=== PATIENT | male | born 2005 | race Caucasian/White ===

== ENCOUNTER 2023-01-06 21:55 | Emergency (ER) | payer OTHER, SELFPAY ==
[2023-01-06 22:10] VITALS: BP 127/77; PULSE 62; RESP 16; TEMP 36.4; O2SAT 97; BMI 22.7
--- NOTE | 2023-01-06 22:13 | CRLHL7_ITS ---
For Patients: As a result of the Cures Act, medical imaging exams and procedure reports are released immediately into your electronic medical record. You may view this report before your referring provider. If you have questions, please contact your health care provider. INDICATION: Pain at metacarpophalangeal joint. TECHNIQUE: Left thumb 3 views. Permanently recorded images are archived. COMPARISON: None. FINDINGS: No acute fracture or aggressive osseous lesion. Alignment is normal. The joint spaces are preserved. Specifically, the 1st metacarpophalangeal joint is unremarkable. The soft tissues are unremarkable. IMPRESSION: No evidence of an acute bony abnormality. Unremarkable 1st metacarpophalangeal joint. Dictated by Roe Salcedo MD @ 01/06/2023 11:45:11 PM (Electronically Signed)
--- NOTE | 2023-01-06 22:18 | ED.UPPEXIN ---
HPI - Extremity Injury (Upper) General Time Seen by Provider: 22:18 Date Seen: 01/06/23 Chief Complaint: Extremity Pain/Injury, Upper Stated Complaint: thumb pain Time Seen by Provider: 01/06/23 22:17 Source: patient and RN notes reviewed Mode of arrival: ambulatory Limitations: no limitations History of Present Illness HPI narrative: This 17-year-old male is coming in with left thumb pain, injured his thumb while playing [employer] earlier today. This happened about 430. He did ice it. He was going to wait until tomorrow morning but a friend had to come in for a laceration, thought he would be evaluated. He points to the thumb metacarpophalangeal joint where he is feeling pain. He sounds like he had a significant jamming mechanism while playing [employer]. Nothing else was injured, the wrist does not hurt. It is only this joint at the base of his left thumb. MD complaint: injury to: left and finger Related Data Home Medications Medication Instructions Recorded Confirmed No Known Home Medications 01/06/23 01/06/23 Allergies Allergy/AdvReac Type Severity Reaction Status Date / Time No Known Drug Allergies Allergy Verified 01/06/23 22:10 Review of Systems Narrative: As per HPI. Exam Const: Vital Signs, click to edit/add: Vital Signs - 24 hr 01/06/23 22:10 Temperature 97.5 F L Pulse Rate [Right Pulse Oximeter] 62 Respiratory Rate 16 Blood Pressure [Ri ght Upper Arm] 127/77 Pulse Oximetry 97 Oxygen Delivery Me thod Room Air Is a very pleasant 17-year-old male seen exam room 1. He is alert, interactive, no apparent distress. On inspection of his left hand, see no significant bruising/ecchymosis, no erythema, no open wounds. He can mobilize his left thumb, fingers are all fully mobile with full flexion extension, he states it does not bother him at all. He can move the thumb about but does have pain along the metacarpophalangeal joint. He is definitely tender along this joint. Distally into the thumb over the phalanx over the IP joint or distal phalanx, there is no traumatic change or pain. Neurovascular is intact. Wrist is nontender. No snuffbox tenderness. Documenting provider has reviewed patient's vital signs: yes Course Reevaluation(s) Time of Reevaluation #1: 23:58 Reevaluation #1: Reviewed with patient that his x-rays negative for fracture. We discussed jam injury. Placed a 4 1/2 inch finger splint on with tape. Reviewed he could use this as needed for comfort. As he feels able can increase his activity. Vital Signs Vital signs: Initial Vital Signs Temperature 97.5 F L 01/06/23 22:10 Temperature Source Temporal Artery Scan 01/06/23 22:10 Pulse Rate 62 01/06/23 22:10 Pulse Rhythm Regular 01/06/23 22:10 Respiratory Rate 16 01/06/23 22:10 Blood Pressure 127/77 01/06/23 22:10 Blood Pressure Mean 93 01/06/23 22:10 Blood Pressure Position Sitting 01/06/23 22:10 Pulse Oximetry 97 01/06/23 22:10 Oxygen Delivery Method Room Air 01/06/23 22:10 Vital Signs Temperature 97.5 F L 01/06/23 22:10 Pulse Rate 62 01/06/23 22:10 Respiratory Rate 16 01/06/23 22:10 Blood Pressure 127/77 01/06/23 22:10 Pulse Oximetry 97 01/06/23 22:10 Oxygen Delivery Method Room Air 01/06/23 22:10 Temperature 97.5 F L 01/06/23 22:10 Pulse Rate 62 01/06/23 22:10 Respiratory Rate 16 01/06/23 22:10 Blood Pressure 127/77 01/06/23 22:10 Pulse Oximetry 97 01/06/23 22:10 Oxygen Delivery Method Room Air 01/06/23 22:10 MDM - Extremity Injury (Upper) Imaging Data XR left thumb: Attestation: I have reviewed the pertinent imaging results. My impression: I see no acute pathology on patient's x-ray of his thumb, wait radiology over-read. Radiologist's impression: Patient: [facility] Facility:?[facility] Patient ID:?[id number] Site Patient ID:?[id number]. Site :?[id number] Study:?XRay Extremity Left Thumb 3 views-01/06/2023 10:43:33 PM Ordering Physician:?Valentine Remy Final Report: INDICATION: Pain at metacarpophalangeal joint. TECHNIQUE: Left thumb 3 views. Permanently recorded images are archived. COMPARISON: None. FINDINGS: No acute fracture or aggressive osseous lesion. Alignment is normal. The joint spaces are preserved. Specifically, the 1st metacarpophalangeal joint is unremarkable. The soft tissues are unremarkable. IMPRESSION: No evidence of an acute bony abnormality. Unremarkable 1st metacarpophalangeal joint. Dictated by Roe Salcedo MD @ 01/06/2023 11:45:11 PM (Electronic Signature) Discharge Plan Discharge Clinical Impression: Thumb injury Patient Disposition: Home, Self-Care Condition: Stable Instructions: Jammed Finger (ED) Additional Instructions: Tylenol and ibuprofen per bottle directions as needed for discomfort. Continue to ice the thumb over the next few days to help decrease pain and inflammation. Use splint as needed over the next few weeks for comfort. If you are not able to wean out of the splint in the next few weeks, have increasing pain at any point, do recommend re-evaluation. There is no evidence of fracture on the x-ray. Activity Level: Activity as Tolerated Prescriptions: No Action No Known Home Medications Stand Alone Forms: [employer] Info Instructions
[2023-01-07] VITALS: BP 118/68; PULSE 70; RESP 16; TEMP 36.8; O2SAT 97
== END 2023-01-07 | disposition home or self-care (01) ==
PROVIDERS: Emergency Provider Family Medicine
DX: S69.92XA Unspecified injury of left wrist, hand and finger(s), initial encounter (principal)
CPT/HCPCS: 29130; 73140; 99282; 99283

== ENCOUNTER 2023-06-26 17:55 | Emergency (ER) | payer OTHER, SELFPAY ==
[2023-06-26 17:57] VITALS: BP 109/72; PULSE 91; RESP 16; TEMP 36.6; O2SAT 97; BMI 22.9
--- NOTE | 2023-06-26 18:30 | XR_ITS ---
Patient: KARSTEN MCCLELLAND Facility:?[facility] Patient ID:?[id number] Site Patient ID:?[id number]. Site :?[id number] Study:?XRay-Extremity Right ankle 3v-06/26/2023 6:42:08 PM Ordering Physician:Danette Self Final Report: INDICATION: Inversion injury. Lateral malleolus pain and swelling. COMPARISON: None. FINDINGS/IMPRESSION: Right ankle, three views. Moderate soft tissue swelling over the lateral malleolus. No fracture, dislocation, or other osseous abnormality identified. Dictated by Mundo Perdomo MD @ 06/26/2023 7:24:54 PM Dictated by: Mundo Perdomo MD @ 06/26/2023 19:25:21 Signed by:?Mundo Perdomo MD @06/26/2023 7:25:21 PM (Electronic Signature)
--- NOTE | 2023-06-26 19:25 | ED.LOWEXIN ---
HPI - Extremity Injury (Lower) General Date Seen: 06/26/23 Chief Complaint: Extremity Pain/Injury, Lower Stated Complaint: right ankle/foot injury Time Seen by Provider: 06/26/23 18:10 Source: patient Mode of arrival: ambulatory Limitations: no limitations History of Present Illness HPI Narrative: Patient is an 17-year-old male presenting to emergency department for right ankle injury. He states he was playing basketball prior to arrival when he inverted his right ankle after a jumping. Since then he has no is significant swelling to his right lateral malleolus. No other injuries noted. Denies any numbness to his foot. Is able to move his toes but has difficulty moving his ankle. Came in on crutches due to pain with ambulation. No previous injuries to this ankle Related Data Home Medications Medication Instructions Recorded Confirmed No Known Home Medications 01/06/23 01/06/23 Allergies Allergy/AdvReac Type Severity Reaction Status Date / Time No Known Drug Allergies Allergy Verified 01/06/23 22:10 Review of Systems Narrative: Pertinent systems reviewed and were negative unless stated [facility]PI [facility] Medical History No significant past medical history Surgical History (Updated 01/07/23 @ 00:45 by Mario Martinez RN) No significant past surgical history Social History Smoking Status: Never smoker Second hand tobacco smoke exposure: No How often do you have a drink containing alcohol: never How often do you have six or more drinks on one occasion: Never AUDIT-C Alcohol total score: 0 Non-prescribed substance use: denies use Exam Narrative: Exam Narrative: Const: Well-nourished, Well-developed, in mild distress Eyes: PERRL, no conjunctival injection, and symmetrical lids HENT: Atraumatic external nose and ears. Moist mucous membranes. MSK:Extremities w/o deformity, decreased range of motion at the right ankle secondary to pain and swelling. Notable swelling to the right lateral malleolus. Tenderness to palpation around the right lateral malleolus. No tenderness noted to the rest of right lower extremity Skin: Warm, Dry. No rashes or lesions. Neuro: Normal Muscle tone, No focal neurological deficits. Psych: Awake, Alert, & Oriented x3. Appropriate mood and affect. Const: Vital Signs, click to edit/add: Vital Signs - 24 hr 06/26/23 17:57 Temperature 98 F Pulse Rate [Pulse Oximeter] 91 Respiratory Rate 16 Blood Pressure [Ri ght Upper Arm] 109/72 Pulse Oximetry 97 Oxygen Delivery Me thod Room Air Course Vital Signs Vital signs: Initial Vital Signs Temperature 98 F 06/26/23 17:57 Temperature Source Temporal Artery Scan 06/26/23 17:57 Pulse Rate 91 06/26/23 17:57 Respiratory Rate 16 06/26/23 17:57 Blood Pressure 109/72 06/26/23 17:57 Blood Pressure Mean 84 06/26/23 17:57 Blood Pressure Position Sitting 06/26/23 17:57 Pulse Oximetry 97 06/26/23 17:57 Oxygen Delivery Method Room Air 06/26/23 17:57 Vital Signs Temperature 98 F 06/26/23 17:57 Pulse Rate 91 06/26/23 17:57 Respiratory Rate 16 06/26/23 17:57 Blood Pressure 109/72 06/26/23 17:57 Pulse Oximetry 97 06/26/23 17:57 Oxygen Delivery Method Room Air 06/26/23 17:57 Temperature 98 F 06/26/23 17:57 Pulse Rate 91 06/26/23 17:57 Respiratory Rate 16 06/26/23 17:57 Blood Pressure 109/72 06/26/23 17:57 Pulse Oximetry 97 06/26/23 17:57 Oxygen Delivery Method Room Air 06/26/23 17:57 MDM - Extremity Injury (Lower) MDM Narrative Medical decision making narrative: Patient is an 16-year-old male presenting for right ankle pain. He does have an open mouth swelling to his right lateral malleolus. No tenderness noted to the medial malleolus, knee, proximal fibula, foot. Is able to move his toes and is neurovascular intact. This has some difficulty moving the right ankle. Will do x-rays of the right ankle. No signs of fracture seen on x-ray reviewed by myself and the radiologist. Patient is otherwise doing walking discharged home. He is agreeable to this plan. Imaging Data Right ankle x-ray: Radiologist's impression: Right ankle, three views. Moderate soft tissue swelling over the lateral malleolus. No fracture, dislocation, or other osseous abnormality identified. Dictated by Mundo Perdomo MD @ 06/26/2023 7:24:54 PM Discharge Plan Discharge Clinical Impression: Right ankle sprain Qualifiers: Encounter type: initial encounter Involved ligament of ankle: unspecified ligament Qualified Code(s): S93.401A - Sprain of unspecified ligament of right ankle, initial encounter Patient Disposition: Home, Self-Care Condition: Stable Instructions: Ankle Sprain (ED) Additional Instructions: Your ankle likely be sore for the next few weeks. Mother was no fractures you likely sprained the ankle and this does take time to heal. Take Tylenol and ibuprofen for pain Prescriptions: No Action No Known Home Medications Follow Up/Referrals: Provider,Not a Local [Primary Care Provider] - Stand Alone Forms: [employer] Info Instructions
[2023-06-26] MEDS: KETOROLAC 30 MG/ML inj IM (19:44)
[2023-06-26 19:48] VITALS: BP 109/72; PULSE 91; RESP 16; TEMP 36.6
== END 2023-06-26 19:51 | disposition home or self-care (01) ==
PROVIDERS: Emergency Provider Student in an Organized Health Care Education/Training Program
DX: S93.401A Sprain of unspecified ligament of right ankle, initial encounter (principal); Y93.67 Activity, basketball
CPT/HCPCS: 73610; 96372; 99282; 99283; 99284; J1885